=== PATIENT | female | born 1940 | race Caucasian/White ===

== ENCOUNTER → 2019-09-24 | Day surgery (SDC) | payer MEDICARE, BC ==
[2019-09-20 11:37] VITALS: BMI 25.7
[~2019-09-24] MED LIST: ACETAMINOPHEN IV (For NPO) 1,000 MG in EMPTY BAG 1 BAG IVPB ONE; ACETAMINOPHEN TAB 325 MG TAB PO PRN; IOPAMIDOL-370 50ML BTL INJ ONE; LIDOCAINE 1% INJ 10MG/ML (20 ML MDV) ONE; LISINOPRIL 20 MG TAB PO SCH; METOPROLOL TARTRATE 75 MG PO SCH; MIDAZOLAM 2 MG/2 ML VIAL ONE; PROPOFOL 10 MG/ML 20 ML VIAL IV ONE; SODIUM CHLORIDE 0.9% 1,000 ML IV SCH; SPIRONOLACTONE 25 MG TAB PO SCH; WARFARIN 2.5 MG TAB PO ONE; WARFARIN 2.5 MG TAB PO SCH; WARFARIN 5 MG TAB PO SCH; ceFAZolin 1,000 MG in SODIUM CHLORIDE 0.9% IRRIGATIO 250 ML IRRIGATION ONE; ePHEDrine SULFATE/0.9% NACL/PF 50 MG/5 ML SYRINGE IV ONE; fentaNYL (PF) 50 MCG/ML 2 ML AMP ONE
[2019-09-24 08:19] VITALS: RESP 18; TEMP 97.8
[2019-09-24 08:20] LABS: Basophils % (A) 1 %; Eosinophils # (A) 0.3 k/uL (0-0.7); Eosinophils % (A) 4 %; HGB 13.2 gm/dL (11.4-16.0); Lymphocytes # (A) 1.5 k/uL (1.0-4.8); Lymphocytes % (A) 19 %; MCH 30.6 pg (25.0-35.0); MCHC 33.9 g/dL (31.0-37.0); MCV 90.3 fL (80.0-100.0); Mean Platelet Volume 7.6; Monocytes # (A) 0.5 k/uL (0-1.0); Monocytes % (A) 6 %; Neutrophils # (A) 5.6 k/uL (1.3-7.7); Neutrophils % (A) 69 %; Platelet Count 251 k/uL (150-450); RBC 4.32 m/uL (3.80-5.40); RDW 12.3 % (11.5-15.5); WBC 8.1 k/uL (3.8-10.6)
[2019-09-24 08:25] LABS: INR 2.8 (<1.2)
[2019-09-24 08:26] LABS: Prothrombin Time 27.6 sec (9.0-12.0)
[2019-09-24 08:37] LABS: Calcium 9.4 mg/dL (8.4-10.2); Potassium 4.5 mmol/L (3.5-5.1)
[2019-09-24] MEDS: LIDOCAINE 1% INJ 10MG/ML (20 ML MDV) SQ ONE ×3 (10:02→10:30)
--- NOTE | 2019-09-24 12:48 | P.PCN ---
Preoperative Diagnosis: Transvenous temporary pacing procedure Indication for the procedure: Severe underlying bradycardia Patient was brought to the EP lab in a fasting state. Written informed consent was obtained prior to the procedure. The right groin was prepped and draped as a protocol. A 6-Turkmen sheath was placed in the right femoral vein. Via this, a temporary pacing catheter was placed in the right ventricle. Thresholds were interrogated. Temporary pacing was performed through the rest of the procedure. At the end of the entire procedure, the TVP was removed. The sheath was removed and hemostasis was assured. Patient tolerated the procedure well without any acute complications. Procedure performed Transvenous temporary pacing Left upper extremity venogram Left upper extremity venogram prior to upgrade to a biventricular ICD 15 mL of IV dye was injected in the left upper extremity vein. 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
--- NOTE | 2019-09-24 12:52 | P.PCN ---
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 Access obtained in the left axillary vein and with some difficulty the wire was placed in the subclavian vein Tortuosity of the innominate/SVC junction The regular J-tip wire would not pass into the right atrium Along advantage wire was then placed in the right atrium A long sheath was placed, 9-Hungarian into the right atrium 5 through that the long CS sheath was placed Access in the CS os was difficult on account of cardiac rotation and right atrial size Once the CS was accessed placement of the long sheath into the CS was virtually impossible A subselected sheath was then placed in the coronary sinus over the advantage wire This subselected sheath was then placed in the posterior lateral vein and the advantage wire was placed in the posterior lateral vein Via this subselected selecting sheaths, the LV lead was placed
--- NOTE | 2019-09-24 16:26 | XR ---
EXAMINATION TYPE: XR chest 1V portable DATE OF EXAM: 09/24/2019 COMPARISON: 10/29/2008 INDICATION: AP device implant TECHNIQUE: Single frontal view of the chest is obtained. FINDINGS: The heart size is normal. The pulmonary vasculature is normal. There is some increased opacity within the left lower lobe with poor visualization left diaphragm. Co rrelate for some atelectasis. There is an exchange of an electronic device overlying the left chest. No pneumothorax is evident. IMPRESSION: 1. No pneumothorax post electronic device replacement left chest
[2019-09-24 17:27] VITALS: PULSE 60
[2019-09-24 18:19] VITALS: BP 114/55
== END | disposition home or self-care (01) ==
LOC: CATHEP 07:45
PROVIDERS: ATTEND Internal Medicine Clinical Cardiac Electrophysiology
DX: I44.2 Atrioventricular block, complete (principal); I42.9 Cardiomyopathy, unspecified; I87.1 Compression of vein; I11.0 Hypertensive heart disease with heart failure; I50.22 Chronic systolic (congestive) heart failure; R00.1 Bradycardia, unspecified; I42.0 Dilated cardiomyopathy; I48.19 Other persistent atrial fibrillation; I48.3 Typical atrial flutter; I48.91 Unspecified atrial fibrillation; E78.5 Hyperlipidemia, unspecified; J45.909 Unspecified asthma, uncomplicated; E11.9 Type 2 diabetes mellitus without complications; Z79.51 Long term (current) use of inhaled steroids; Z79.01 Long term (current) use of anticoagulants; Z79.899 Other long term (current) drug therapy; Z88.8 Allergy status to other drugs, medicaments and biological substances
CPT/HCPCS: 33225; 75820; 33264; 80048; 85025; 85610; 71045; C1894; C1769 ×6; C1892; C1730 ×2; C1900; J2250; J0690 ×2; J2001; J3010; J0131; J2704; Q9967

== ENCOUNTER 2020-03-04 09:28 | Day surgery (SDC) | payer MEDICARE, BC ==
[2020-02-27 17:31] VITALS: BMI 25.2
[~2020-03-04 09:28] MED LIST changes: -ACETAMINOPHEN IV (For NPO) 1,000 MG in EMPTY BAG 1 BAG IVPB ONE; -ACETAMINOPHEN TAB 325 MG TAB PO PRN; -IOPAMIDOL-370 50ML BTL INJ ONE; -LIDOCAINE 1% INJ 10MG/ML (20 ML MDV) ONE; -LISINOPRIL 20 MG TAB PO SCH; -METOPROLOL TARTRATE 75 MG PO SCH; -MIDAZOLAM 2 MG/2 ML VIAL ONE; -PROPOFOL 10 MG/ML 20 ML VIAL IV ONE; -SPIRONOLACTONE 25 MG TAB PO SCH; -WARFARIN 2.5 MG TAB PO ONE; -WARFARIN 2.5 MG TAB PO SCH; -WARFARIN 5 MG TAB PO SCH; -ceFAZolin 1,000 MG in SODIUM CHLORIDE 0.9% IRRIGATIO 250 ML IRRIGATION ONE; -ePHEDrine SULFATE/0.9% NACL/PF 50 MG/5 ML SYRINGE IV ONE; -fentaNYL (PF) 50 MCG/ML 2 ML AMP ONE
[2020-03-04] MEDS ORDERED: SODIUM CHLORIDE 0.9% 500 ML 500 ML IV ONE (10:12)
[2020-03-04 10:14] VITALS: RESP 16; TEMP 98
[2020-03-04 10:30] LABS: INR 2.5 (<1.2); Prothrombin Time 24.1 sec (9.0-12.0)
[2020-03-04] MEDS ORDERED: PROPOFOL 10 MG/ML 20 ML VIAL IV ONE (11:05)
--- NOTE | 2020-03-04 11:44 | P.HPCAR ---
History of Present Illness This is Dr. Medina dictating an H/P on this patient The patient was interviewed and examined IMPRESSION / ASSESSMENT: Persistent atrial fibrillation Severe nonischemic cardiomyopathy Status post BIV ICD Congestive heart failure class III Recently started on sotalol 80 mg twice daily PLAN: Electrical cardioversion sotalol 80 mg twice daily INR is therapeutic on Coumadin HPI Patient been complaining of tiredness and fatigue After starting sotalol she also feels dizzy Blood pressure is 1 4606 9 mmHg pulse rate in the 50s afebrile No orthopnea PND no chest pain no loss of consciousness ROS: No fever chills or rigors, no cough, phlegm or expectoration, no nausea, vomiting or diarrhea, no hematuria, dysuria, no musculoskeletal complaints, no strokes or seizures, no skin lesions. EXAMINATION: Blood pressure 146/69 pulse rate in the 50s paced 98F Breath sounds are reduced bilaterally no rhonchi no crackles ICD site is healed well Heart sounds are soft, soft systolic murmur REVIEW OF LABS, ECG & MEDICAL DATA patient is on Coumadin INR is 2.5 Physical Exam Vitals: Vital Signs Temp Pulse Resp BP Pulse Ox 03/04/20 10:12 98 F 56 L 16 146/69 100 Intake and Output 03/03/20 03/04/20 03/04/20 22:59 06:59 14:59 Intake Total 150 Balance 150 Intake: IV 150 Other: Weight 69.9 kg Past Medical History Past Medical History: Atrial Fibrillation, Asthma, Cancer, Diabetes Mellitus, Hypertension Additional Past Medical History / Comment(s): BIVENTRICULAR AICD, MEDTRONIC. BOWEL CANCER WITH RESECTION (2003), DIET CONTROLLED DIABETES, SEES DR SPRINGER FOR MILD KIDNEY DISEASE. History of Any Multi-Drug Resistant Organisms: None Reported Past Surgical History: AICD, Appendectomy, Bowel Resection, Cholecystectomy, Heart Catheterization, Hernia Repair, Hysterectomy, Pacemaker, Tonsillectomy Additional Past Surgical History / Comment(s): COLONOSCOPY, ABDOMINAL HERNIA, CATARACT. MEDTRONIC PACEMAKER/AICD- (2000, 2008 AND 2013, 09/24/19). Past Anesthesia/Blood Transfusion Reactions: No Reported Reaction Type of Cardiac Device: Biventricular Pacemaker Device Placement Date:: 09/24/19 Smoking Status: Never smoker - Past Family History Mother Family Medical History: Cancer Additional Family Medical History / Comment(s): BREAST CANCER Physical Examination Vital Signs Temp Pulse Resp BP Pulse Ox 03/04/20 10:12 98 F 56 L 16 146/69 100 Intake and Output 03/03/20 03/04/20 03/04/20 22:59 06:59 14:59 Intake Total 150 Balance 150 Intake: IV 150 Other: Weight 69.9 kg Results Coagulation 03/04/20 Range/Units 10:05 PT 24.1 H (9.0-12.0) sec Current Medications Generic Name Dose Route Start Last Admin Trade Name Hangq PRN Reason Stop Dose Admin Sodium Chloride 1,000 mls @ 50 mls/hr 03/04/20 05:55 Saline 0.9% IV .Q20H DANIEL Intake and Output 03/03/20 03/04/20 03/04/20 22:59 06:59 14:59 Intake Total 150 Balance 150 Intake: IV 150 Other: Weight 69.9 kg Patient Weight 03/05/20 06:59 Weight 69.9 kg
--- NOTE | 2020-03-04 11:47 | P.PCN ---
Preoperative Diagnosis: Procedure Electrical cardioversion Biventricular ICD interrogation and reprogramming Diagnosis Persistent symptomatically atrial fibrillation, currently on sotalol 80 mg twice daily Procedure Under conscious sedation, anesthesia in attendance 3 and 60 J biphasic shock in AP configuration converted the patient to an atrial paced rhythm Device interrogation revealed findings consistent with heart failure worsening Patient also complains of being dizzy on sotalol a Metronic biventricular ICD was interrogated and reprogrammed Lower pacing rate reprogrammed to 60 beats a minute Upper sensor rate reprogrammed to 130 beats a minute Plan Continue Coumadin Reduce sotalol to 40 mg twice daily Her blood pressure is 146/69 mmHg today Continue cardio myopathy medications Follow-up in the office in 1-2 weeks
[2020-03-04 19:47] VITALS: PULSE 70
[2020-03-04 19:50] VITALS: BP 106/62
== END 2020-03-04 13:38 | disposition home or self-care (01) ==
LOC: CATHEP 09:28
PROVIDERS: ATTEND Internal Medicine Clinical Cardiac Electrophysiology
DX: I48.19 Other persistent atrial fibrillation (principal); R42 Dizziness and giddiness; I42.8 Other cardiomyopathies; I50.9 Heart failure, unspecified; J45.909 Unspecified asthma, uncomplicated; E11.9 Type 2 diabetes mellitus without complications; I11.0 Hypertensive heart disease with heart failure; N28.9 Disorder of kidney and ureter, unspecified; Z95.810 Presence of automatic (implantable) cardiac defibrillator; Z79.899 Other long term (current) drug therapy; Z79.01 Long term (current) use of anticoagulants; Z85.00 Personal history of malignant neoplasm of unspecified digestive organ; Z90.49 Acquired absence of other specified parts of digestive tract; Z98.890 Other specified postprocedural states; Z87.19 Personal history of other diseases of the digestive system; Z90.710 Acquired absence of both cervix and uterus; Z90.89 Acquired absence of other organs; Z98.49 Cataract extraction status, unspecified eye; Z88.8 Allergy status to other drugs, medicaments and biological substances; Z80.3 Family history of malignant neoplasm of breast
CPT/HCPCS: 92960; 85610; J2704

== ENCOUNTER 2022-02-03 13:31 | Emergency (ER) | payer MEDICARE, BC ==
[2022-02-03 14:08] VITALS: TEMP 98.9
[2022-02-03 17:50] VITALS: RESP 18
--- NOTE | 2022-02-03 18:12 | ED ---
General Adult HPI - General Chief complaint: Dizziness Stated complaint: light headed SOB Time Seen by Provider: 02/03/22 17:35 Source: patient Mode of arrival: ambulatory Limitations: no limitations - History of Present Illness Initial comments: Dictation was produced using Sara Campbell dictation software. please excuse any grammatical, word or spelling errors. Chief Complaint: 81-year-old female presents to the emergency department for lightheadedness, shortness of breath History of Present Illness: 81-year-old female presents to the emergency per for lightheadedness and shortness of breath. Patient states she's had these symptoms for 3 months. Patient had been worked up multiple times at other ERs and with her primary care doctor. Patient and family member at the bedside are desperate to find an answer for was causing her symptoms. Patient has any hearing loss. She states she is lightheaded. Denies a symptoms of the room spinning. Patient lives by herself. The ROS documented in this emergency department record has been reviewed and confirmed by me. Those systems with pertinent positive or negative responses have been documented in the HPI. All other systems are other negative and/or noncontributory. PHYSICAL EXAM: General Impression: Alert and oriented x3, not in acute distress HEENT: Normocephalic atraumatic, extra-ocular movements intact, pupils equal and reactive to light bilaterally, mucous membranes moist. Cardiovascular: Heart regular rate and rhythm Chest: Able to complete full sentences, no retractions, no tachypnea Abdomen: abdomen soft, non-tender, non-distended, no organomegaly Musculoskeletal: Pulses present and equal in all extremities, no peripheral edema Motor: no focal deficits noted Neurological: CN II-XII grossly intact, no focal motor or sensory deficits noted Skin: Intact with no visualized rashes Psych: Normal affect and mood ED course: 81 yo female presents emergency department for 3 months of lightheadedness, shortness of breath. Vital signs upon arrival are within acceptable limits. Patient is well-appearing at the bedside she is not hypoxic or tachypneic. Not showing signs of respiratory distress. Patient is well- appearing at bedside. She has no focal neurologic deficits. States that her symptoms have been ongoing for 3 months and had been evaluated by primary care doctor and multiple emergency rooms with no apparent cause. EKG interpretation: Ventricular rate 62, atrial paced rhythm. UT interval 170, QS 132, QTc 467. No UT prolongation, no QTC prolongation, no ST or T-wave changes noted. Overall, this EKG is unremarkable Patient ambulatory without ectopic locations. She ambulated to and from the bathroom without any assistance. CBC is unremarkable. INR is therapeutic at 2.7. D-dimer 0.3. Metabolic panel is unremarkable. Troponin is normal. Chest x-ray shows no acute processes. Urinalysis shows 19 white blood cells though there are 7 squamous epithelial cells. I simply patient benefit from aromatic treatment for presumed urinary tract infection. Patient given dose of ceftriaxone prescription for Keflex. Patient advised to follow up with her primary care doctor for outpatient follow- up and further care. - Related Data Home Medications Medication Instructions Recorded Confirmed Albuterol Inhaler [Ventolin Hfa 1 - 2 puff INHALATION RT-Q6H PRN 09/20/19 03/04/20 Inhaler] Ergocalciferol [Vitamin D2 50,000 unit PO Q14D 09/20/19 03/04/20 (DRISDOL)] Fluticasone Propion/Salmeterol 1 inhalation PO BID PRN 09/20/19 03/04/20 [Advair 250-50 Diskus] Metoprolol Tartrate [Lopressor] 75 mg PO BID 09/20/19 03/04/20 Spironolactone [Aldactone] 12.5 mg PO DAILY 09/20/19 03/04/20 Warfarin [Coumadin] 2.5 mg PO [id number] 09/20/19 03/04/20 Warfarin [Coumadin] 5 mg PO SUTH 09/20/19 03/04/20 lisinopriL [Zestril] 20 mg PO DAILY 09/20/19 03/04/20 Sotalol [Betapace] 80 mg PO BID 02/27/20 03/04/20 Previous Rx's Medication Instructions Recorded Cephalexin [Keflex] 500 mg PO Q12HR 7 Days #14 cap 02/03/22 Allergies Allergy/AdvReac Type Severity Reaction Status Date / Time Vtdzolo-[id number]-DgQ Reductase AdvReac Unknown AFFECTED Verified 02/03/22 14:08 Inhibitor MUSCLES [Lipaiyg-Zzl-Tei Reductase Inhibitor] metformin AdvReac Diarrhea Verified 02/03/22 14:08 Review of Systems ROS Statement: Those systems with pertinent positive or pertinent negative responses have been documented in the HPI. ROS Other: All systems not noted in ROS Statement are negative. Past Medical History Past Medical History: Atrial Fibrillation, Asthma, Cancer, Diabetes Mellitus, Hypertension Additional Past Medical History / Comment(s): BIVENTRICULAR AICD, MEDTRONIC. BOWEL CANCER WITH RESECTION (2003), DIET CONTROLLED DIABETES, SEES DR SPRINGER FOR MILD KIDNEY DISEASE. History of Any Multi-Drug Resistant Organisms: None Reported Past Surgical History: AICD, Appendectomy, Bowel Resection, Cholecystectomy, Heart Catheterization, Hernia Repair, Hysterectomy, Pacemaker, Tonsillectomy Additional Past Surgical History / Comment(s): COLONOSCOPY, ABDOMINAL HERNIA, CATARACT. MEDTRONIC PACEMAKER/AICD- (2000, 2008 AND 2013, 09/24/19). Past Anesthesia/Blood Transfusion Reactions: No Reported Reaction Type of Cardiac Device: Biventricular Pacemaker Device Placement Date:: 09/24/19 Past Psychological History: No Psychological Hx Reported Smoking Status: Never smoker - Past Family History Mother Family Medical History: Cancer Additional Family Medical History / Comment(s): BREAST CANCER General Exam Limitations: no limitations Course Vital Signs 02/03/22 02/03/22 14:06 17:46 Temperature 98.9 F Pulse Rate 74 70 Respiratory 20 18 Rate Blood Pressure 149/75 147/75 O2 Sat by Pulse 97 100 Oximetry Medical Decision Making - Lab Data Result diagrams: 02/03/22 18:37 02/03/22 18:37 Lab Results 02/03/22 02/03/22 02/03/22 Range/Units 18:37 18:37 18:37 WBC 9.9 (3.8-10.6) k/uL RBC 4.51 (3.80-5.40) m/uL Hgb 13.5 (11.4-16.0) gm/dL Hct 41.0 (34.0-46.0) % MCV 90.9 (80.0-100.0) fL MCH 29.8 (25.0-35.0) pg MCHC 32.8 (31.0-37.0) g/dL RDW 12.1 (11.5-15.5) % Plt Count 296 (150-450) k/uL MPV 7.6 Neutrophils % 67 % Lymphocytes % 22 % Monocytes % 5 % Eosinophils % 5 % Basophils % 1 % Neutrophils # 6.6 (1.3-7.7) k/uL Lymphocytes # 2.2 (1.0-4.8) k/uL Monocytes # 0.5 (0-1.0) k/uL Eosinophils # 0.4 (0-0.7) k/uL Basophils # 0.1 (0-0.2) k/uL PT 26.6 H (9.0-12.0) sec INR 2.7 H (<1.2) APTT 30.1 H (22.0-30.0) sec D-Dimer 0.30 (<0.60) mg/L FEU Sodium 137 (137-145) mmol/L Potassium 4.5 (3.5-5.1) mmol/L Chloride 99 (98-107) mmol/L Carbon Dioxide 27 (22-30) mmol/L Anion Gap 11 mmol/L BUN 16 (7-17) mg/dL Creatinine 0.82 (0.52-1.04) mg/dL Est GFR (CKD-EPI)AfAm 78 (>60 ml/min/1.73 sqM) Est GFR (CKD-EPI)NonAf 67 (>60 ml/min/1.73 sqM) Glucose 113 H (74-99) mg/dL Calcium 9.6 (8.4-10.2) mg/dL Magnesium 2.2 (1.6-2.3) mg/dL Total Bilirubin 0.7 (0.2-1.3) mg/dL AST 20 (14-36) U/L ALT 13 (4-34) U/L Alkaline Phosphatase 208 H (38-126) U/L Troponin I (0.000-0.034) ng/mL Total Protein 7.5 (6.3-8.2) g/dL Albumin 4.3 (3.5-5.0) g/dL Urine Color Urine Appearance (Clear) Urine pH (5.0-8.0) Ur Specific [place] (1.001-1.035) Urine Protein (Negative) Urine Glucose (UA) (Negative) Urine Ketones (Negative) Urine Blood (Negative) Urine Nitrite (Negative) Urine Bilirubin (Negative) Urine Urobilinogen (<2.0) mg/dL Ur Leukocyte Esterase (Negative) Urine RBC (0-5) /hpf Urine WBC (0-5) /hpf Ur Squamous Epith Cells (0-4) /hpf Urine Bacteria (None) /hpf Urine Mucus (None) /hpf 02/03/22 02/03/22 Range/Units 18:37 20:30 WBC (3.8-10.6) k/uL RBC (3.80-5.40) m/uL Hgb (11.4-16.0) gm/dL Hct (34.0-46.0) % MCV (80.0-100.0) fL MCH (25.0-35.0) pg MCHC (31.0-37.0) g/dL RDW (11.5-15.5) % Plt Count (150-450) k/uL MPV Neutrophils % % Lymphocytes % % Monocytes % % Eosinophils % % Basophils % % Neutrophils # (1.3-7.7) k/uL Lymphocytes # (1.0-4.8) k/uL Monocytes # (0-1.0) k/uL Eosinophils # (0-0.7) k/uL Basophils # (0-0.2) k/uL PT (9.0-12.0) sec INR (<1.2) APTT (22.0-30.0) sec D-Dimer (<0.60) mg/L FEU Sodium (137-145) mmol/L Potassium (3.5-5.1) mmol/L Chloride (98-107) mmol/L Carbon Dioxide (22-30) mmol/L Anion Gap mmol/L BUN (7-17) mg/dL Creatinine (0.52-1.04) mg/dL Est GFR (CKD-EPI)AfAm (>60 ml/min/1.73 sqM) Est GFR (CKD-EPI)NonAf (>60 ml/min/1.73 sqM) Glucose (74-99) mg/dL Calcium (8.4-10.2) mg/dL Magnesium (1.6-2.3) mg/dL Total Bilirubin (0.2-1.3) mg/dL AST (14-36) U/L ALT (4-34) U/L Alkaline Phosphatase (38-126) U/L Troponin I <0.012 (0.000-0.034) ng/mL Total Protein (6.3-8.2) g/dL Albumin (3.5-5.0) g/dL Urine Color Yellow Urine Appearance Cloudy H (Clear) Urine pH 5.0 (5.0-8.0) Ur Specific [place] 1.014 (1.001-1.035) Urine Protein Negative (Negative) Urine Glucose (UA) Negative (Negative) Urine Ketones Trace H (Negative) Urine Blood Negative (Negative) Urine Nitrite Negative (Negative) Urine Bilirubin Negative (Negative) Urine Urobilinogen <2.0 (<2.0) mg/dL Ur Leukocyte Esterase Large H (Negative) Urine RBC 4 (0-5) /hpf Urine WBC 19 H (0-5) /hpf Ur Squamous Epith Cells 7 H (0-4) /hpf Urine Bacteria Rare H (None) /hpf Urine Mucus Occasional H (None) /hpf Disposition Clinical Impression: UTI (urinary tract infection), Dizziness Disposition: HOME SELF-CARE Condition: Fair Instructions (If sedation given, give patient instructions): Dizziness (ED), U rinary Tract Infection in Women (ED) Prescriptions: Cephalexin [Keflex] 500 mg PO Q12HR 7 Days #14 cap Is patient prescribed a controlled substance at d/c from ED?: No Referrals: Jon Mayes, PRUDENCIO [Family Provider] - 1-2 days Time of Disposition: 21:03
--- NOTE | 2022-02-03 18:33 | XR ---
EXAMINATION TYPE: XR chest 2V DATE OF EXAM: 02/03/2022 6:20 PM COMPARISON: Chest radiographs from 09/24/2019. TECHNIQUE: XR chest 2V Frontal and lateral views of the chest. CLINICAL INDICATION:Female, 81 years old with history of dyspnea; FINDINGS: Lungs/Pleura: There is flattening of the diaphragm with increased lucency of the lungs. No evidence o f pneumothorax, pleural effusion or focal consolidation. Pulmonary vascularity: Unremarkable. Heart/mediastinum: Cardiomediastinal silhouette is unremarkable. Three lead cardiac conduction device overlying the left hemithorax with lead tips projecting over the right ventricle, right atrium and c oronary sinus. Musculoskeletal: Degenerative changes of the shoulder joints. IMPRESSION: 1. No acute cardiopulmonary disease process. 2. COPD changes.
[2022-02-03 18:45] LABS: Basophils # (A) 0.1 k/uL (0-0.2); Basophils % (A) 1 %; Eosinophils # (A) 0.4 k/uL (0-0.7); Eosinophils % (A) 5 %; HGB 13.5 gm/dL (11.4-16.0); Lymphocytes # (A) 2.2 k/uL (1.0-4.8); Lymphocytes % (A) 22 %; MCH 29.8 pg (25.0-35.0); MCHC 32.8 g/dL (31.0-37.0); MCV 90.9 fL (80.0-100.0); Mean Platelet Volume 7.6; Monocytes # (A) 0.5 k/uL (0-1.0); Monocytes % (A) 5 %; Neutrophils # (A) 6.6 k/uL (1.3-7.7); Neutrophils % (A) 67 %; Platelet Count 296 k/uL (150-450); RBC 4.51 m/uL (3.80-5.40); RDW 12.1 % (11.5-15.5); WBC 9.9 k/uL (3.8-10.6)
[2022-02-03 18:57] LABS: INR 2.7 (<1.2); Partial Thromboplastin Time 30.1 sec (22.0-30.0); Prothrombin Time 26.6 sec (9.0-12.0)
[2022-02-03 18:59] LABS: Albumin 4.3 g/dL (3.5-5.0); Calcium 9.6 mg/dL (8.4-10.2); Magnesium 2.2 mg/dL (1.6-2.3); Potassium 4.5 mmol/L (3.5-5.1); Total Bilirubin 0.7 mg/dL (0.2-1.3); Total Protein 7.5 g/dL (6.3-8.2)
[2022-02-03 20:52] LABS: Appearance,Urine Cloudy (Clear); Bacteria,Urine Rare /hpf; Bilirubin,Urine Negative (Negative); Blood,Urine Negative (Negative); Color,Urine Yellow; Glucose,Urine (UA) Negative (Negative); Ketones,Urine Trace (Negative); Leukocyte Esterase,Urine Large (Negative); Mucus,Urine Occasional /hpf; Nitrite,Urine Negative (Negative); Protein,Urine Negative (Negative); RBC,Urine 4 /hpf (0-5); Specific Gravity,Urine 1.014 (1.001-1.035); Squamous Epithelial Cell,Urine 7 /hpf (0-4); Urobilinogen,Urine <2.0 mg/dL (<2.0); WBC,Urine 19 /hpf (0-5)
[2022-02-03] MEDS ORDERED: cefTRIAXone IN SWFI 1,000 MG/10 ML SYRINGE IVP STA (21:02)
[2022-02-03 21:31] VITALS: BP 146/75; PULSE 71
== END 2022-02-03 21:31 | disposition home or self-care (01) ==
LOC: EC 13:31
DX: R42 Dizziness and giddiness (principal); N39.0 Urinary tract infection, site not specified; J45.909 Unspecified asthma, uncomplicated; E11.9 Type 2 diabetes mellitus without complications; I10 Essential (primary) hypertension; Z88.8 Allergy status to other drugs, medicaments and biological substances
CPT/HCPCS: 36415; 93005; 85379; 80053; 83735; 84484; 85025; 85610; 85730; 81001; 87086; 71046; 99285; 96374; J0696